=== PATIENT | female | born 1985 | race Caucasian/White ===

== ENCOUNTER 2018-12-18 10:09 | Day surgery (SDC) | payer OTHER ==
[2018-12-18] MEDS ORDERED: LIDOCAINE 4% SOLUTION 50 ML BTL (11:21)
[2018-12-18] MEDS ORDERED: MIDAZOLAM 1 MG/ML 2 ML INJ ×2 (12:02)
[2018-12-18] MEDS ORDERED: FENTAnyl 50 MCG/ML VIAL (12:02)
== END 2018-12-18 15:47 | disposition home or self-care (01) ==
LOC: GIL 10:09
DX: K20.8 Other esophagitis (principal); K29.50 Unspecified chronic gastritis without bleeding
CPT/HCPCS: 43239; 88305; 88313